=== PATIENT | male | born 1995 | race Caucasian/White ===

== ENCOUNTER → 2018-02-20 | Outpatient (CLI) | payer OTHER ==
--- NOTE | 2018-02-20 15:55 | MRI ---
EXAM DESCRIPTION: MRI right shoulder CLINICAL HISTORY: Right shoulder pain. Limited range of motion COMPARISON: None. TECHNIQUE: Multiplanar, multisequence MR images of the right shoulder FINDINGS: Mild supraspinatus tendinosis. No tear. Normal muscle volume and signal Mild infraspinatus tendinosis. No tear. Normal muscle volume and signal. Teres minor tendon and muscle are normal Narrow coracohumeral interval, 8 mm. Subscapularis tendon thickening with intratendinous increased signal. Insertional interstitial partial tear with resorptive irregularity and mild edema in the lesser tuberosity spanning about 6 mm craniocaudal. Interstitial linear high signal intensity medial lateral about 1.7 cm along the mid tendon. Muscle volume is normal with no fatty infiltration Long head biceps tendon normal in the bicipital groove and intra-articular. Labral anchor intact. No labral tear No high-grade glenohumeral chondrosis or chronic osteochondral lesion. Mild acromioclavicular osteoarthritis. Type II acromion. Subacromial subdeltoid bursal edema without fluid IMPRESSION: Subscapularis tendinosis with interstitial partial tear from the critical zone to the insertion. Focal resorptive irregularity and edema in the lesser tuberosity. 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
== END ==
LOC: MRI 10:03
PROVIDERS: ATTEND Family Medicine
DX: M25.511 Pain in right shoulder (principal)